=== PATIENT | male | born 1965 | race Caucasian/White ===

== ENCOUNTER 2018-07-05 06:50 | Inpatient (IN) | payer MEDICAID, OTHER ==
[~2018-07-05] VITALS: Ht 170.2 cm; Wt 81.6 kg
[2018-07-05] VITALS (7 sets, daily range): BP systolic 106–148; BP diastolic 70–92
[2018-07-05] MEDS ORDERED: NS 1000ML 1,000 ML STA (07:04)
[2018-07-05] MEDS ORDERED: SOLU-MEDROL IV STA (07:06)
[2018-07-05] MEDS ORDERED: DECADRON IH STA (07:06)
[2018-07-05] MEDS ORDERED: DUONEB 0.5 MG-3 MG/3 ML SOLN IH STA (07:06)
[2018-07-05] MEDS ORDERED: HALDOL IM STA (07:12)
[2018-07-05] MEDS ORDERED: ATIVAN IV STA (07:12)
[2018-07-05] MEDS ORDERED: ATIVAN ONE (07:15)
[2018-07-05] MEDS ORDERED: BENADRYL IV STA (07:15)
[2018-07-05] MEDS ORDERED: NS 1000ML 1,000 ML ONE ×2 (07:21→21:29)
[2018-07-05] MEDS ORDERED: DECADRON ONE (07:22)
[2018-07-05] MEDS ORDERED: DUONEB 0.5 MG-3 MG/3 ML SOLN IH ONE (07:22)
[2018-07-05 07:25] LABS: BASOPHIL % 0.3 % (0.0-0.2); EOSINOPHIL # 0.4 10^3/uL (0.0-0.2); EOSINOPHIL % 3.2 % (0.0-5.0); LYMPHOCYTES # 2.2 10^3/uL (1.0-4.8); LYMPHOCYTES % 17.9 % (24.0-44.0); MEAN CELL HGB 23.5 pg (26-34); MEAN CELL HGB CONCENTRATION 29.8 g/dL (33-37); MEAN CORP VOLUME 79.1 fL (78-100); MEAN PLATELET VOLUME 11.6 fL (7.8-11.0); MONOCYTES % 8.6 % (5.0-12.0); NEUTROPHIL # 8.5 10^3/uL (1.8-7.7); NEUTROPHILS % 69.8 % (41.0-85.0); RED CELL DISTRIBUTION WIDTH 20.7 % (11.5-14.5); WHITE BLOOD CELL 12.2 10^3/uL (4.5-11.0)
[2018-07-05] MEDS ORDERED: SOLU-MEDROL ONE (07:26)
[2018-07-05] MEDS ORDERED: BENADRYL ONE (07:36)
--- NOTE | 2018-07-05 07:38 | ER.PDOC ---
General Chief Complaint: Nausea,Vomiting,Diarrhea Stated Complaint: COUGH, VOMIT BLOOD, SUBMASSIVE HEMOPTYSIS Time seen by MD: 07:33 Source: patient Exam Limitations: no limitations, other (PARANOID SCHIZOPHRENIA) History of Present Illness Timing/Duration: 1-3 hours Severity: mild Activities at Onset: none Prior Episodes/Possible Cause: no prior episodes Modifying Factors: improves with albuterol inhaler, improves with coughing, improves with oxygen, improves with rest Associated Symptoms: anxiety Prior symptoms/Treatment: Similar symptoms previous Past Medical History Medical History: COPD, thyroid disease, other Surgical History: no surgical history Social History Smoking: non-smoker Alcohol Use: none Drug Use: none Reviewed Nursing Reviewed: Vital Signs, Abn. Noted Review of Systems All Other Systems: Reviewed and Negative Physical Exam General Appearance: No Apparent Distress, WD/WN HEENT: PERRL/EOMI, Normal ENT Inspection, TMs Normal, Pharynx Normal Neck: Non-Tender, Full Range of Motion, Supple, Normal Inspection Respiratory: rhonchi Cardiovascular: Normal Peripheral Pulses, Regular Rate, Rhythm, No Edema, No Gallop, No JVD, No Murmur Gastrointestinal: Normal Bowel Sounds, No Organomegaly, No Pulsatile Mass, Non Tender, Soft Extremities: Pedal Edema Neurologic/Psychiatric: geophysical party chief II-XII NML as Tested, No Motor/Sensory Deficits, Alert, Normal Mood/Affect, Oriented x 3 Skin: Normal Color, Warm/Dry Lymphatic: No Adenopathy Results/Orders Results/Orders Orders - TOMMY VERGARA MD Ammonia (07/05/18 07:04) Valproate (07/05/18 07:04) Cbc With Auto Diff (07/05/18 07:04) Comprehensive Metabolic Panel (07/05/18 07:04) Amylase (07/05/18 07:04) Lipase (07/05/18 07:04) Helicobacter Pylori (07/05/18 07:04) PT (07/05/18 07:04) Partial Thromboplastin Time. (07/05/18 07:04) Urinalysis (07/05/18 07:04) Type And Screen (07/05/18 07:04) 0.9 % Sodium Chloride (Ns 1000ml) (07/05/18 07:04) Ipratropium/Albuterol Sulfate (Duoneb 0. (07/05/18 07:06) Dexamethasone Sod Phosphate (Decadron) (07/05/18 07:06) Methylprednisolone Sod Succ (Solu-Medrol (07/05/18 07:06) Lorazepam (Ativan) (07/05/18 07:12) Haloperidol Lactate (Haldol) (07/05/18 07:12) Troponin I (07/05/18 07:12) Creatine Kinase Mb (07/05/18 07:12) Creatine Kinase (07/05/18 07:12) Diphenhydramine Hcl (Benadryl) (07/05/18 07:15) Lorazepam (Ativan) (07/05/18 07:15) 0.9 % Sodium Chloride (Ns 1000ml) (07/05/18 07:21) Ipratropium/Albuterol Sulfate (Duoneb 0. (07/05/18 07:22) Dexamethasone Sod Phosphate (Decadron) (07/05/18 07:22) Methylprednisolone Sod Succ (Solu-Medrol (07/05/18 07:26) Ekg-Routine (07/05/18 07:33) Xr Chest 1v (07/05/18 07:10) Diphenhydramine Hcl (Benadryl) (07/05/18 07:36) Piperacillin Sodium/Tazobactam (Zosyn 3. (07/05/18 07:54) Vital Signs Date Time Temp Pulse Resp B/P (MAP) Pulse Ox O2 Delivery O2 Flow Rate FiO2 07/05/18 07:34 109 16 95 07/05/18 07:29 113 16 91 07/05/18 07:13 98.5 109 14 136/79 (98) 81 Room Air 98.5 07/05/18 07:03 98.5 109 14 81 Room Air 98.5 Administered Medications Medications (Trade) Dose Ordered Sig/Cedric Route PRN Reason Start Time Stop Time Status Last Admin Dose Admin Albuterol/ Ipratropium (Duoneb 0.5 Mg-3 Mg/3 ml Soln) 3 ml STAT STAT IH 07/05/18 07:06 07/05/18 07:08 DC 07/05/18 07:33 3 ML Dexamethasone Sodium Phosphate (Decadron) 4 mg STAT STAT IH 07/05/18 07:06 07/05/18 07:08 DC 07/05/18 07:33 4 MG Diphenhydramine HCl (Benadryl) 25 mg STAT STAT IV 07/05/18 07:15 07/05/18 07:16 DC 07/05/18 07:36 25 MG Haloperidol Lactate (Haldol) 5 mg STAT STAT IM 07/05/18 07:12 07/05/18 07:16 DC 07/05/18 08:58 5 MG Lorazepam (Ativan) 2 mg STAT STAT IV 07/05/18 07:12 07/05/18 07:16 DC 07/05/18 07:21 2 MG Methylprednisolone Sodium Succinate (Solu-Medrol) 125 mg STAT STAT IV 07/05/18 07:06 07/05/18 07:08 DC 07/05/18 07:31 125 MG Piperacillin Sod/ Tazobactam Sod 3.375 gm/Sodium Chloride 100 ml @ 100 mls/hr STAT STAT IV 07/05/18 07:54 07/05/18 08:53 DC 07/05/18 08:12 100 MLS/HR Sodium Chloride 1,000 ml @ 0 mls/hr Q0M STAT IV 07/05/18 07:04 07/05/18 07:07 DC 07/05/18 07:30 999 MLS/HR Laboratory Tests Test 07/05/18 07:17 07/05/18 07:33 White Blood Count 12.2 10^3/uL (4.5-11.0) H Red Blood Count 4.25 10^6/uL (4.50-5.90) L Hemoglobin 10.0 g/dL (13.9-16.3) L Hematocrit 33.6 % (37.0-53.0) L Mean Corpuscular Volume 79.1 fL (78-100) Mean Corpuscular Hemoglobin 23.5 pg (26-34) L Mean Corpuscular Hemoglobin Concent 29.8 g/dL (33-37) L Red Cell Distribution Width 20.7 % (11.5-14.5) H Platelet Count 313 10^3/uL (150-400) Mean Platelet Volume 11.6 fL (7.8-11.0) H Neutrophils (%) (Auto) 69.8 % (41.0-85.0) Lymphocytes (%) (Auto) 17.9 % (24.0-44.0) L Monocytes (%) (Auto) 8.6 % (5.0-12.0) Neutrophils # (Auto) 8.5 10^3/uL (1.8-7.7) H Lymphocytes # (Auto) 2.2 10^3/uL (1.0-4.8) Monocytes # (Auto) 1.0 10^3/uL (0.3-0.8) H Absolute Immature Granulocyte (auto 0.03 10^3 u/L (0-2) Eosinophils % 3.2 % (0.0-5.0) Basophils % 0.3 % (0.0-0.2) H Basophils # 0.0 10^3/uL (0.0-0.1) Eosinophil Count 0.4 10^3/uL (0.0-0.2) H Prothrombin Time 11.2 SEC (9.8-11.9) Prothrombin Time INR (Non-Therap) 1.1 PTT 23.3 SEC (24.67-30.72) Sodium Level 139 mmol/L (132-145) Potassium Level 4.1 mmol/L (3.6-5.2) Chloride Level 101.0 mmol/L (96-109) Carbon Dioxide Level 28.1 mmol/L (20.0-32) Anion Gap 14.0 Blood Urea Nitrogen 14 mg/dL (7-18) Creatinine 1.52 mg/dL (0.59-1.40) H Estimated GFR () 58.1 (>/=60) BUN/Creatinine Ratio 9.0 Glucose Level 101 mg/dL (70-110) Calcium Level 9.0 mg/dL (8.4-10.5) Total Bilirubin 0.2 mg/dL (0.2-1.0) Aspartate Amino Transferase (AST) 11 U/L (0-35) Alanine Aminotransferase (ALT) 11 U/L (12-78) L Alkaline Phosphatase 67 U/L (50-136) Ammonia 17 umol/L (11-35) Total Creatine Kinase 230 U/L (39-308) Creatine Kinase MB 1.1 ng/mL (0.5-3.6) Troponin I < 0.02 ng/mL (0.00-0.05) Total Protein 8.6 g/dL (6.4-8.2) H Albumin 3.0 g/dL (3.4-5.0) L Globulin 5.6 Amylase Level 95 U/L (25-115) Lipase 138 U/L (114-286) Valproic Acid Level 25 ug/mL (50-100) L Percent Immature Gran (Cell Imm) 0.20 % (0.00-0.50) Helicobacter pylori Screen NEGATIVE (NEGATIVE) Differential Total Cells Counted 100 #CELLS Segmented Neutrophils 75 % (31-76) Lymphocytes 15 % (25-36) L Monocytes 8 % (3-9) Absolute Eosinophils (Manual) 1 % (1-4) Basophils 1 % (0-2) Platelet Estimate ADEQUATE Platelet Morphology NORMAL Poikilocytosis 1+ (NEGATIVE) Anisocytosis 2+ (NEGATIVE) Blood Bank Test 07/05/18 07:17 Antibody Screen NEGATIVE BBK History Checked NO PREVIOUS RECORD Blood Type A POSITIVE EKG/XRAY/CT/US EKG: NSR, no ST T wave changes Consult/PCP Time Consult/PCP Called: 08:00 Consult/PCP: DR BROWN Course Vitals & review Data Vital Sign - Last 24 Hours 07/05/18 07/05/18 07/05/18 07/05/18 07:03 07:13 07:29 07:34 Temp 98.5 98.5 98.5 98.5 Pulse 109 109 113 109 Resp 14 14 16 16 B/P (MAP) 136/79 (98) Pulse Ox 81 81 91 95 O2 Delivery Room Air Room Air Laboratory Tests Test 07/05/18 07:17 07/05/18 07:33 White Blood Count 12.2 10^3/uL Red Blood Count 4.25 10^6/uL Hemoglobin 10.0 g/dL Hematocrit 33.6 % Mean Corpuscular Volume 79.1 fL Mean Corpuscular Hemoglobin 23.5 pg Mean Corpuscular Hemoglobin Concent 29.8 g/dL Red Cell Distribution Width 20.7 % Platelet Count 313 10^3/uL Mean Platelet Volume 11.6 fL Neutrophils (%) (Auto) 69.8 % Lymphocytes (%) (Auto) 17.9 % Monocytes (%) (Auto) 8.6 % Neutrophils # (Auto) 8.5 10^3/uL Lymphocytes # (Auto) 2.2 10^3/uL Monocytes # (Auto) 1.0 10^3/uL Absolute Immature Granulocyte (auto 0.03 10^3 u/L Eosinophils % 3.2 % Basophils % 0.3 % Basophils # 0.0 10^3/uL Eosinophil Count 0.4 10^3/uL Prothrombin Time 11.2 SEC Prothrombin Time INR (Non-Therap) 1.1 Activated Partial Thromboplast Time 23.3 SEC Sodium Level 139 mmol/L Potassium Level 4.1 mmol/L Chloride Level 101.0 mmol/L Carbon Dioxide Level 28.1 mmol/L Anion Gap 14.0 Blood Urea Nitrogen 14 mg/dL Creatinine 1.52 mg/dL Estimated GFR () 58.1 BUN/Creatinine Ratio 9.0 Glucose Level 101 mg/dL Calcium Level 9.0 mg/dL Total Bilirubin 0.2 mg/dL Aspartate Amino Transf (AST/SGOT) 11 U/L Alanine Aminotransferase (ALT/SGPT) 11 U/L Alkaline Phosphatase 67 U/L Ammonia 17 umol/L Total Creatine Kinase 230 U/L Creatine Kinase MB 1.1 ng/mL Troponin I < 0.02 ng/mL Total Protein 8.6 g/dL Albumin 3.0 g/dL Globulin 5.6 Amylase Level 95 U/L Lipase 138 U/L Valproic Acid (Depakene) Level 25 ug/mL Percent Immature Gran (Cell Imm) 0.20 % Helicobacter pylori Screen NEGATIVE Differential Total Cells Counted 100 #CELLS Segmented Neutrophils 75 % Lymphocytes 15 % Monocytes 8 % Absolute Eosinophils (Manual) 1 % Basophils 1 % Platelet Estimate ADEQUATE Platelet Morphology NORMAL Poikilocytosis 1+ Anisocytosis 2+ Sepsis Infection Criteria Pres: None O2 Sat by Pulse Oximetry: 91 Departure Time of Disposition: 10:00 Disposition: 09 ADMITTED INPATIENT Impression: Primary Impression: COPD (chronic obstructive pulmonary disease) with acute bronchitis Additional Impression: Acute (undifferentiated) schizophrenia Condition: Improved Duration or Time Spent with Pa: 2 HRS Problem Qualifiers TOMMY VERGARA MD Jul 05, 2018 07:38
--- NOTE | 2018-07-05 07:39 | DIREP ---
PROCEDURE:CHEST 1 VIEW COMPARISON:None. INDICATIONS:hemoptysis FINDINGS: LUNGS/PLEURA:No significant pulmonary parenchymal abnormalities. No effusions. VASCULATURE:Normal. Unremarkable pulmonary vasculature. CARDIAC:The heart size is mildly enlarged. MEDIASTINUM:Normal. No visible mass or adenopathy. BONES:Normal. No fracture or visible bony lesion. OTHER:Negative. CONCLUSION:Mild cardiomegaly without acute cardiopulmonary disease. Dictated by: Brian Sidhu M.D. on 07/05/2018 at 07:38 AM
--- NOTE | 2018-07-05 07:41 | PCM.EKG ---
[facility] Test Date: 2018-07-05 Test Time: 07:40:03 Pat Name: ESTHER ZULETA Department: Patient ID: [id number] Room: 303 Gender: M [employer] Outreach Specialist: KATHERINE : 1965 Requested By: TOMMY VERGARA Order Number: [id number] Reading MD: Tommy Vergara Measurements Intervals [place] Rate: 105 P: 67 AK: 142 QRS: -57 QRSD: 92 T: 63 QT: 362 QTc: 478 Interpretive Statements Sinus tachycardia Left axis deviation Abnormal ECG No previous ECG available for comparison Electronically Signed On 07-09-2018 7:29:34 CDT by Tommy Vergara Please click the below link to view image of tracing.
[2018-07-05 07:42] LABS: CARBON DIOXIDE 28.1 mmol/L (20.0-32)
[2018-07-05] MEDS ORDERED: ZOSYN 3.375 GRAM VIAL 3.375 GM in NS 100ML 100 ML IV STA (07:54)
[2018-07-05] MEDS ORDERED: NS 100ML 100 ML IV ONE ×2 (08:05→19:09)
[2018-07-05] MEDS ORDERED: ZOSYN 3.375 GRAM VIAL IV ONE (08:05)
[2018-07-05 08:22] LABS: ANISOCYTOSIS 2+ (NEGATIVE); BASOPHIL 1 % (0-2); EOSINOPHIL 1 % (1-4); LYMPHOCYTE 15 % (25-36); MONOCYTE 8 % (3-9); SEGMENTED NEUTROPHILS 75 % (31-76)
[2018-07-05 08:41] LABS: BILIRUBIN,URINE NEGATIVE (NEGATIVE); UROBILINOGEN,URINE NORMAL (NEGATIVE)
[2018-07-05 08:43] LABS: APPEARANCE,URINE CLEAR (CLEAR); UA COLOR YELLOW (YELLOW)
[2018-07-05] MEDS ORDERED: HALDOL ONE (08:48)
--- NOTE | 2018-07-05 09:00 | NUR ---
TRANSFER PT TRANSFER TO [facility] 303, REPORT GIVEN TO RHETT. HENRRY.
--- NOTE | 2018-07-05 09:00 | NUR ---
[email or web address] PT TO [facility] VIA STRETCHER BY Denny URENA RN. BELONGINGS SENT WITH PT.
--- NOTE | 2018-07-05 09:48 | NUR ---
STATUS SINCE PT HAS ARRIVED PT HAS BEEN ATTEMPTING TO LEAVE THE ROOM. PT HAS BECOME SOME WHAT AGGRESSIVE AT TIMES. Denny MARCOS MEASURER MONITORING PT AT THIS TIME. I AM IN ROOM BECAUSE OF THE PT GRABBING Denny MARCOS ARM TRYING TO HEAD FOR THE DOOR. DR. BROWN AT BEDSIDE
[2018-07-05] MEDS: ATIVAN IV PRN ×3 (09:56→20:35)
[2018-07-05] MEDS ORDERED: WATER 20 ML ONE ×2 (10:31→17:51)
--- NOTE | 2018-07-05 10:35 | PCM.HP ---
HISTORY & PHYSICAL HISTORY & PHYSICAL DATE OF ADMISSION: CHIEF COMPLAINT: 53 yo male with paranoid schizophrenia comes in with 2 days of hemoptysis and possible hematemesis. Wheezing on exam. Admit for possible URI and Hematemesis with RAFAEL. H&P # [id number] HISTORY OF PRESENT ILLNESS: ALLERGIES: CURRENT MEDICATIONS: PAST MEDICAL HISTORY: SOCIAL HISTORY: FAMILY HISTORY: REVIEW OF SYSTEMS: PHYSICAL EXAMINATION: GENERAL: VITAL SIGNS: HEENT: NECK: LUNGS: HEART: ABDOMEN: EXTREMITIES: NEUROLOGIC: LABORATORY DATA: IMPRESSION: CARE PLAN: JENNIFER BROWN MD Jul 05, 2018 10:35
[2018-07-05] MEDS: ZYPREXA IM PRN ×2 (10:37→17:57)
[2018-07-05] MEDS ORDERED: LOVENOX SQ SCH (11:00)
--- NOTE | 2018-07-05 11:00 | NUR ---
RESTRAINTS ORDERS RECEIVED BY DR. BROWN FOR THE USE OF RESTRAINTS AT THIS TIME PER PROTOCOL
[2018-07-05] MEDS ORDERED: HALO5TAB PO (11:11)
[2018-07-05] MEDS ORDERED: DIVA500T17 PO (11:11)
[2018-07-05] MEDS ORDERED: OLAN10TA9 PO (11:11)
[2018-07-05] MEDS ORDERED: QUET300T6 PO (11:11)
[2018-07-05] MEDS ORDERED: QUET150T PO (11:11)
[2018-07-05] MEDS ORDERED: FOLI1TAB21 PO (11:11)
[2018-07-05] MEDS ORDERED: LEVE500T8 PO (11:11)
[2018-07-05] MEDS ORDERED: IPRA3AMP25 IH (11:11)
[2018-07-05] MEDS ORDERED: LEVE10007 PO (11:11)
[2018-07-05] MEDS ORDERED: THEO400C PO (11:11)
[2018-07-05] MEDS ORDERED: MONT10TA6 PO (11:11)
[2018-07-05] MEDS ORDERED: ESCI20TA PO (11:11)
[2018-07-05] MEDS ORDERED: LORA-448 PO (11:11)
[2018-07-05] MEDS ORDERED: LISI-410 PO (11:11)
[2018-07-05] MEDS ORDERED: LEVO100T PO (11:11)
[2018-07-05] MEDS ORDERED: ZOSYN 3.375 GM/50 ML IV SCH (12:00)
[2018-07-05] MEDS ORDERED: DUONEB 0.5 MG-3 MG/3 ML SOLN IH SCH (12:00)
--- NOTE | 2018-07-05 12:06 | HPH ---
ADMIT DATE: 07/05/2018 CHIEF COMPLAINT: Altered mental status, cough, nausea, and vomiting. HISTORY OF PRESENT ILLNESS: This is a 53-year-old male, residential patient with schizophrenia who comes in with several hours of coughing up blood. This has happened approximately 2-3 times, although it has not happened in the Emergency Department. It sounds more like blood-tinged sputum versus actual massive hemoptysis or gross hemoptysis. He also had some emesis which appeared to be coffee ground emesis. There was one episode of diarrhea, which did not show blood. His mental status has been somewhat altered as well with increasing confusion and agitation. This has been going on for the last 24 hours. During my interview and examination of the patient, he is wanting to leave his hospital room and becomes violent when the nursing staff tries to redirect him into his room. PAST MEDICAL HISTORY: 1. COPD. 2. Hypothyroidism. 3. Schizophrenia. MEDICATIONS: See admit medication reconciliation form. ALLERGIES: Unknown. PAST SURGICAL HISTORY: Unknown. SOCIAL HISTORY: Alcohol, tobacco: None. The patient currently lives in a nursing home facility. FAMILY HISTORY: Noncontributory. REVIEW OF SYSTEMS: Other than the above-mentioned symptoms and complaints review of systems is negative. OBJECTIVE: PHYSICAL EXAMINATION: VITAL SIGNS: Heart rate is 109, respirations 16, pulse oximeter 95% on room air, and blood pressure 117/70. GENERAL: This is a well-appearing male in no acute distress. HEENT: Atraumatic, normocephalic. Sclerae clear and anicteric. LUNGS: Clear to auscultation bilaterally. HEART: Regular rate and rhythm without murmurs, S3, S4. ABDOMEN: Soft, nontender, nondistended. EXTREMITIES: No new changes or edema. NEUROLOGIC: Cranial nerves 2 through 12 are grossly intact and symmetric. SKIN: Intact. LABORATORY DATA: WBC 12.2, hemoglobin 10, hematocrit 33.6, and platelets 313. Sodium 139, potassium 4.1, chloride 101, CO2 of 28, BUN 14, creatinine 1.52. Urinalysis negative. Chest x-ray: "No acute cardiopulmonary disease." IMPRESSION: 1. Hemoptysis. 2. Nausea, vomiting. 3. Leukocytosis. 4. Anemia of chronic disease. 5. Paranoid schizophrenia. 6. Hypertension. 7. Tachycardia. PLAN: 1. The patient is admitted to [facility] for further evaluation and management. 2. We will follow his symptoms closely and try to discern whether or not this is hemoptysis versus hematemesis. 3. May need surgery consult. 4. Follow H and H closely as it may need transfusion. 5. We will try to get home medication list and ascertain if he is on blood thinners. 6. Start empiric antibiotics. Consider CT of the chest. Kieran Pedro MD DR: KRISTIN/jimenez JOB# [id number]
[2018-07-05] MEDS: DUONEB 0.5 MG-3 MG/3 ML SOLN IH SCH ×3 (13:00→20:38)
[2018-07-05] MEDS: SOLU-MEDROL IV SCH ×2 (14:21→21:27)
[2018-07-05] MEDS: ZOSYN 3.375 GRAM VIAL 3.375 GM in NS 100ML 100 ML IV SCH ×2 (14:21→18:00)
--- NOTE | 2018-07-05 14:30 | NUR ---
RESTRAINTS RESTRAINTS WERE REMOVED. PT IS UP IN THE A CHAIR SITTING AT THIS TIME. STAFF IS CONTINUING 1:1 WITH PT. PT ALSO TAKEN FOR A WALK IN THE HALLWAY BY STAFF. GAVE PT A WALKER TO STEADY HIM. WHEN BACK IN ROOM PT UP IN A RECLINER FOR MORE COMFORT. STAFF CONT 1:1
--- NOTE | 2018-07-05 16:07 | NUR ---
EMESIS PT HAS HAD TIMES TWO PROJECTILE VOMITING. ONE WAS AFTER LUNCH AND WAS NOW. PT WAS CLEANED AFTER EACH. REPORTED TO RN EACH TIME
[2018-07-05] MEDS ORDERED: PROTONIX PO ONE (16:17)
[2018-07-05] MEDS: PROTONIX PO SCH (16:20)
--- NOTE | 2018-07-05 17:57 | NUR ---
INCIDENT ANNEMARIE EATON WAS AMBULATING PT DOWN THE WALKER. PT BEGAN TO GET VIOLENT AND PUSHED HE AGAINST THE WALL. PT WAS ABLE TO BE BROUGHT BACK TO ROOM X3 PERSONS. PT WAS STILL COMBATIVE AND NEEDED 4 NURSES TO CONTROL PT TO PUT RESTRAINTS BACK ONTO PT. 7.5 MG OF IM ZYPREXA GIVEN AT THIS TIME.
--- NOTE | 2018-07-05 18:11 | NUR ---
STATUS PT HAD 500ML OF STOOL LIKE EMESIS AT THIS TIME. DR. BROWN INFORMED. NEW ORDER FOR NG TUBE TO LIS AND TO BE NPO
--- NOTE | 2018-07-05 19:03 | DIREP ---
PROCEDURE:CHEST 1 VIEW COMPARISON:[facility], CR, XRAY CHEST SINGLE VW, 07/05/2018, 07:23 AM. INDICATIONS:NGT PLACEMENT FINDINGS: LUNGS/PLEURA:The lung apices are cut from the film. There is overlapping mandibular shadow identified. NG tube projects over the esophagus, the tip below the left diaphragm in the body of the stomach. The lungs as visualized show no infiltrates, heart failure or effusions. VASCULATURE:Normal. Unremarkable pulmonary vasculature. CARDIAC:Normal. No cardiac silhouette abnormality or cardiomegaly. MEDIASTINUM:Normal. No visible mass or adenopathy. BONES:Normal. No fracture or visible bony lesion. OTHER:Negative. CONCLUSION:NG tube in the stomach. Dictated by: Aron Major MD on 07/05/2018 at 07:01 PM
[2018-07-05] MEDS ORDERED: PROTONIX IV IV ONE (19:09)
[2018-07-05 19:11] LABS: HEMOGLOBIN 9.6 g/dL (13.9-16.3); MEAN CELL HGB 22.9 pg (26-34); MEAN CELL HGB CONCENTRATION 28.9 g/dL (33-37); MEAN PLATELET VOLUME 11.3 fL (7.8-11.0); RED CELL DISTRIBUTION WIDTH 20.6 % (11.5-14.5); WHITE BLOOD CELL 13.5 10^3/uL (4.5-11.0)
[2018-07-05] MEDS ORDERED: REGLAN IV SCH (20:00)
[2018-07-05] MEDS: PROTONIX IV 80 MG in NS 100ML 100 ML IV SCH (20:00)
--- NOTE | 2018-07-05 20:01 | NUR ---
CAME IN ROOM ELEAZAR HAD JUST FINISHED INSERTING NGT TO Derek POSADAS, X-RAY IN ROOM TO CHECK FOR PLACEMENT, PT WAS RESTRAINED WITH SOFT RESTRAINTS, BLE AND BUE. Addendum: 07/05/18 at 2137 by Chirsty Rivas, [facility] - Med Surg LEAK OPERATOR [employer] pt was vomiting large amount of of dark green emisis with chunks of food,soon after pulling ngt out. nurses Eleazar, Dana and Ofelia stated to me that had vomited niumeral times before ngt was placed during the end of .
[2018-07-05 20:19] LABS: ABG PCO2 44.8 mmHg (35.0-45.0); ABG PH 7.402 (7.350-7.450); BE(B) 2.1 mmol/L (-2.0-2.0); HCO3act 27.3 mmol/L (22.0-26.0); pO2 53.5 mmHg (75.0-100.0)
--- NOTE | 2018-07-05 20:28 | NUR ---
PT PULLED NGT TUBE OUT. HE WAS ABLETO HOOK TUBING WITH PINKY FINGER. ELEAZAR TRIED TO INSERT NEW NGT YUBE X 2 WAS UNSUCCESSFUL. PROTONIX IS GOING VIA IV DRIP ORDERED. RESTRAINTS CHECKED, PT ABLE TO MOVE AROUND IN THEM. ABLE TO FIT FINGERS UNDER RESTRAINTS TO CHECK FOR TIGHTNESS.
--- NOTE | 2018-07-05 20:59 | NUR ---
PROTONIX WAS SCANED SENTHIL BUSH BUT WAS NOT ABLE TO BE HUNG UNTIL 2028, PT WAS COUGHING, AGITATED AND COMBATIVE. AT THAT TIME, WAS ABLE TO CALM PT, BY TURNING DOWN LIGHTS AND HOLDING HIS HAND, THEN WAS ABLE TO START THE PROTONIX DRIP.
--- NOTE | 2018-07-05 21:01 | NUR ---
PT HAVING SHORT RESTING PERIODS THE SITS UP IN BED AND STARTS LOUDLY SAYING LET ME OUT OF HERE, ONCE HAND HELD AGAIN HE DOSES BACK OFF. ALL RESTRAINTS INTACT AND CHECKED.
--- NOTE | 2018-07-05 22:20 | NUR ---
Dr. Solorio in room. Assessing pt.
--- NOTE | 2018-07-05 23:10 | NUR ---
RT IN ROOM DRAWING ABG
[2018-07-06] MEDS ORDERED: HNS 1000ML/KCL 20MEQ 1,000 ML ONE (00:03)
[2018-07-06 00:12] VITALS: BP 129/86
[2018-07-06] MEDS: ZOSYN 3.375 GRAM VIAL 3.375 GM in NS 100ML 100 ML IV SCH ×4 (00:12→21:24)
[2018-07-06] MEDS: DUONEB 0.5 MG-3 MG/3 ML SOLN IH SCH ×3 (02:08→08:37)
[2018-07-06] MEDS: D5W-1/2 NS/KCL 20MEQ 1,000 ML IV SCH ×2 (02:55→05:10)
--- NOTE | 2018-07-06 02:58 | NUR ---
started d5w 1/2 ns @ 20kcl, after pt recieved bag of ns that was running when Dr. Solorio came to room earlier, Osmin stated to run bag of ns in at 250cc/hr, then change fluid.
[2018-07-06 03:26] VITALS: BP 142/92
--- NOTE | 2018-07-06 03:49 | DIREP ---
PROCEDURE:XR ABDOMEN 2 VIEWS COMPARISON:None. INDICATIONS:N/V TECHNIQUE:Flat and upright views of the abdomen are provided. FINDINGS: BOWEL GAS PATTERN:[id number] fecal burden within the proximal colon. The more distal colon appears relatively decompressed. No dilated loops of small bowel are identified. CALCIFICATIONS:No suspicious calcifications are appreciated. LUNG BASES:Grossly clear. BONES:Degenerative changes of the spine. CONCLUSION: 1. Nonspecific nonobstructive bowel gas pattern. 2. No suspicious calcifications identified. Dictated by: Erik Leiva M.D. On 07/06/2018 at 03:47 AM
[2018-07-06] MEDS ORDERED: NS 100ML 100 ML IV ONE (04:45)
[2018-07-06] MEDS ORDERED: PROTONIX IV IV ONE (04:45)
[2018-07-06] MEDS: PROTONIX IV 80 MG in NS 100ML 100 ML IV SCH (05:08)
[2018-07-06] MEDS: SOLU-MEDROL IV SCH ×3 (05:10→22:10)
[2018-07-06 05:12] LABS: HEMOGLOBIN 9.1 g/dL (13.9-16.3); MEAN CELL HGB CONCENTRATION 29.1 g/dL (33-37); MEAN CORP VOLUME 79.2 fL (78-100); MEAN PLATELET VOLUME 11.4 fL (7.8-11.0); RED CELL DISTRIBUTION WIDTH 20.2 % (11.5-14.5); WHITE BLOOD CELL 16.2 10^3/uL (4.5-11.0)
[2018-07-06 05:35] LABS: CALCIUM 8.7 mg/dL (8.4-10.5); CARBON DIOXIDE 29.4 mmol/L (20.0-32)
--- NOTE | 2018-07-06 05:43 | NUR ---
pt is drowsy and starting to nap longer intervals, tried to remove restraints, unable to leave monica upper off, because pt keeps trying to pull out iv,and take O2. but i am at this time able to leave monica ankle off. will continue to monitor pt at bedside.
[2018-07-06] MEDS ORDERED: D5W-1/2NS 1000ML 1,000 ML IV ONE (08:30)
[2018-07-06 08:34] VITALS: BP 128/83
--- NOTE | 2018-07-06 10:47 | DIREP ---
PROCEDURE:CT ABD/PELVIS WITHOUT CONTRAST TECHNIQUE:No oral contrast was given. Axial cuts were obtained from the dome of the diaphragm to the ischial tuberosities. No intravenous contrast was given. The images were viewed at lung and soft tissue settings. Sagittal and coronal reconstructions are provided. COMPARISON:None. INDICATIONS:DISTENED ABDOMEN FINDINGS: LOWER CHEST:Bibasilar atelectasis. There is small infiltrate in the right dependent lung base. LIVER:Normal. BILIARY:Normal. PANCREAS:Normal. SPLEEN:Normal. URINARY TRACT:Normal. ADRENALS:Normal. AORTA/VASCULAR:Normal. RETROPERITONEUM:Small lymph nodes. BOWEL/MESENTERY:Small hiatal hernia. A few lymph nodes are seen in the mediastinal fat adjacent to the hiatal hernia. Diverticulosis. No CT evidence of diverticulitis. The appendix is not seen. ABDOMINAL WALL:Midline fat containing hernia. PELVIS:Calcifications peripherally with the prostate. Prostate is not enlarged. There is mild bladder wall thickening. BONES:Extensive subchondral lucencies and other areas of sclerosis are seen in both femoral heads probably related to degenerative change. OTHER:Normal. CONCLUSION: 1. Significantly limited study due to motion and lack of IV or oral contrast. 2. Small infiltrate versus prominent atelectasis in the right dependent lung base. 3. Diverticulosis without CT evidence of diverticulitis. 4. Mild bladder wall thickening. 5. Extensive subchondral lucencies and other areas of sclerosis in the femoral heads probably related to severe degenerative changes. 6. Borderline prominent lymph nodes in the retroperitoneum and along a hiatal hernia in the lower mediastinum. Other findings as above. Dictated by: Jordan Kyle MD on 07/06/2018 at 10:37 AM
[2018-07-06] MEDS: PROTONIX PO SCH (10:53)
--- NOTE | 2018-07-06 11:05 | NUR ---
DISCHARGE PLAN PATIENT IS DISORIENTED X3. CM PHONED [facility] TO FIND OUT STATUS OF PATIENT RETURNING TO THEIR FACILITY. PATIENT WAS ADMITTED TO THEIR FACILITY FROM A [facility] ON WEDNESDAY EVENING AND WAS ADMITTED TO OUR FACILITY THE NEXT DAY. THE DISCHARGE PLAN IS FOR THE PATIENT TO RETURN BACK TO [facility] FOR SKILLED THERAPY WAAS PREVIOUSLY INTENDED FOR PATIENT PRIOR TO THIS HOSPITAL ADMISSION. CM WILL CONTINUE TO FOLLOW FOR DISCHARGE NEEDS.
--- NOTE | 2018-07-06 11:05 | PRM.PN ---
Subjective Subjective Date: Jul 06, 2018 Time: 11:00 Subjective A little somnolent this AM. No specific complaints. Still getting intermittently agitated. No further episodes of vomiting today. VTE VTE Risk Total Score: 1 VTE Risk Score VTE Risk: Score 0-1 = Low Risk (Aggressive mobilization; early ambulation; no VTE prophylaxis required) Score 2: Moderate Risk (Intermittent/Pneumatic Compression Device OR Lovenox/Heparin/Coumadin) Score 3-4: High Risk (Intermittent/Pneumatic Compression Device AND Lovenox/Heparin/Coumadin) Score > or =5: Highest Risk (Intermittent/Pneumatic Compression Device AND Lovenox/Heparin/Coumadin) Review of Systems Constitutional: Weakness; No: Fever, Chills, Sweats, Malaise, Other Respiratory: No: Cough, Dry, Shortness of breath, SOB with excertion, Wheezing , Hemoptysis, Pleuritic Pain, Sputum, Wheezing, Other Cardiovascular: No: Chest Pain, Palpitations, Orthopnea, Paroxysmal Noc. Dyspnea, Edema, Lt Headedness, Other Gastrointestinal: Nausea; No: Vomiting, Abdominal Pain, Diarrhea, Constipation , Melena, Hematochezia, Other Genitourinary: No Dysuria, No Frequency, No Incontinence, No Hematuria, No Retention, No Other Neurological: Weakness; No: Numbness, Incoordination, Change in speech, Confusion, Seizures, Other Allergies: Coded Allergies: No Known Drug Allergies (Verified Allergy, Unknown, 07/05/18) Scheduled Divalproex Sodium (Divalproex Sodium Er), 1 TAB PO HS, (Reported) Escitalopram Oxalate (Escitalopram Oxalate), 1 TAB PO DAILY, (Reported) Folic Acid (Folic Acid), 1 TAB PO DAILY, (Reported) Haloperidol (Haloperidol), 1 TAB PO BID, (Reported) Levetiracetam (Levetiracetam), 1,000 MG PO BID, (Reported) Levetiracetam (Levetiracetam), 1 TAB PO BID, (Reported) Levothyroxine Sodium (Synthroid), 1 TAB PO ACB, (Reported) Lisinopril (Lisinopril), 1 TAB PO DAILY, (Reported) Lorazepam (Ativan), 1 MG PO BID, (Reported) Montelukast Sodium (Singulair), 1 TAB PO HS, (Reported) Olanzapine (Olanzapine), 1 TAB PO HS, (Reported) Quetiapine Fumarate (Seroquel Xr), 1 TAB PO DAILY24, (Reported) Quetiapine Fumarate (Seroquel Xr), 1 TAB PO HS, (Reported) Theophylline Anhydrous (Rl-24), 400 MG PO DAILY24, (Reported) Scheduled PRN Ipratropium/Albuterol Sulfate (Iprat-Albut 0.5-3(2.5) Mg/3 Ml), 3 ML IH Q4 PRN for SHORTNESS OF BREATH, (Reported) Objective Vitals and I/O Vital Sign - Last 24 Hours 07/05/18 07/05/18 07/05/18 07/05/18 12:21 12:29 14:09 14:10 Temp 98.8 98.8 Pulse 105 107 110 Resp 21 28 14 B/P (MAP) 132/83 (99) Pulse Ox 95 97 98 O2 Delivery Nasal Canula Nasal Cannula O2 Flow Rate 2.00 07/05/18 07/05/18 07/05/18 07/05/18 14:10 16:52 16:53 16:54 Temp 97.9 97.9 Pulse 107 111 115 102 Resp 14 18 20 19 B/P (MAP) 135/92 (106) Pulse Ox 97 97 98 96 O2 Delivery Nasal Cannula Nasal Canula O2 Flow Rate 2.00 FiO2 28 07/05/18 07/05/18 07/05/18 07/05/18 20:31 20:37 20:37 20:39 Temp 98.0 98.0 Pulse 104 115 115 115 Resp 20 20 20 20 B/P (MAP) 148/89 (108) Pulse Ox 92 94 94 94 O2 Delivery Nasal Canula Nasal Cannula O2 Flow Rate 3.00 07/05/18 07/06/18 07/06/18 07/06/18 21:39 00:12 02:09 02:20 Temp 98.0 98.0 Pulse 103 105 105 Resp 18 20 20 B/P (MAP) 129/86 (100) Pulse Ox 98 93 93 O2 Delivery Nasal Cannula Nasal Canula O2 Flow Rate 3.00 07/06/18 07/06/18 07/06/18 07/06/18 03:26 05:21 05:28 08:34 Temp 97.6 98.3 97.6 98.3 Pulse 105 105 105 96 Resp 17 17 17 18 B/P (MAP) 142/92 (109) 128/83 (98) Pulse Ox 93 93 O2 Delivery Nasal Canula Nasal Canula O2 Flow Rate 2.00 2.00 07/06/18 07/06/18 07/06/18 07/06/18 08:39 08:39 08:44 10:41 Pulse 98 98 98 Resp 16 16 16 Pulse Ox 95 94 95 O2 Delivery Nasal Cannula Nasal Cannula O2 Flow Rate 2.00 FiO2 28 Intake and Output 07/05/18 07/05/18 07/06/18 14:59 22:59 06:59 Intake Total 1728 ml 462 ml Output Total 175 ml 1075 ml 1475 ml Balance 1553 ml -613 ml -1475 ml General: Alert, Cooperative, No acute distress Lungs: Other (Rhonchi right greater than left. ) Heart: Regular rate, Normal S1, Normal S2, No murmurs Abdomen: Normal bowel sounds, Soft, Other (Distended.) Neuro: Normal speech, Strength at 5/5 X4 ext All Results(Lab/Rad) Laboratory Tests Test 07/05/18 19:05 07/05/18 20:12 07/05/18 23:29 07/06/18 04:52 White Blood Count 13.5 10^3/uL 16.2 10^3/uL Red Blood Count 4.20 10^6/uL 3.95 10^6/uL Hemoglobin 9.6 g/dL 9.1 g/dL Hematocrit 33.2 % 31.3 % Mean Corpuscular Volume 79.0 fL 79.2 fL Mean Corpuscular Hemoglobin 22.9 pg 23.0 pg Mean Corpuscular Hemoglobin Concent 28.9 g/dL 29.1 g/dL Red Cell Distribution Width 20.6 % 20.2 % Platelet Count 316 10^3/uL 279 10^3/uL Mean Platelet Volume 11.3 fL 11.4 fL Blood Gas Sample Site RT BRACIAL ARTERY RT BRACIAL ARTERY Blood Gas pH 7.402 Blood Gas PCO2 44.8 mmHg Blood Gas PO2 53.5 mmHg Blood Gas HCO3 27.3 mmol/L Blood Gas Base Excess 2.1 mmol/L Jason Test N/A N/A Arterial Blood Oxygen Saturation 81.4 % Deoxyhemoglobin 18.5 % Carboxyhemoglobin 0.6 % Methemoglobin 0.1 % Total Hemoglobin 10.3 % Total Oxygen Concentration 11.7 % Lactic Acid (Blood Gas) 3.8 MMOL/L 1.5 MMOL/L Blood Gas Temperature 37 Oxygen Delivery Method (LAB) RA FiO2 21 % Bicarbonate 28.6 mmol/L Sodium Level 137 mmol/L Potassium Level 4.7 mmol/L Chloride Level 102.0 mmol/L Carbon Dioxide Level 29.4 mmol/L Anion Gap 10.3 Blood Urea Nitrogen 24 mg/dL Creatinine 1.44 mg/dL Estimated GFR () 61.9 BUN/Creatinine Ratio 16.0 Glucose Level 196 mg/dL Calcium Level 8.7 mg/dL Magnesium Level 2.2 mg/dL Total Bilirubin 0.2 mg/dL Aspartate Amino Transf (AST/SGOT) 18 U/L Alanine Aminotransferase (ALT/SGPT) 13 U/L Alkaline Phosphatase 62 U/L Total Protein 8.1 g/dL Albumin 2.8 g/dL Globulin 5.3 Current Medications Medications (Trade) Dose Ordered Sig/Cedric Route PRN Reason Start Time Stop Time Status Last Admin Dose Admin Sodium Chloride 1,000 ml @ 0 mls/hr Q0M STAT IV 07/05/18 07:04 07/05/18 07:07 DC 07/05/18 07:30 Albuterol/ Ipratropium (Duoneb 0.5 Mg-3 Mg/3 ml Soln) 3 ml STAT STAT IH 07/05/18 07:06 07/05/18 07:08 DC 07/05/18 07:33 Dexamethasone Sodium Phosphate (Decadron) 4 mg STAT STAT IH 07/05/18 07:06 07/05/18 07:08 DC 07/05/18 07:33 Methylprednisolone Sodium Succinate (Solu-Medrol) 125 mg STAT STAT IV 07/05/18 07:06 07/05/18 07:08 DC 07/05/18 07:31 Lorazepam (Ativan) 2 mg STAT STAT IV 07/05/18 07:12 07/05/18 07:16 DC 07/05/18 07:21 Haloperidol Lactate (Haldol) 5 mg STAT STAT IM 07/05/18 07:12 07/05/18 07:16 DC 07/05/18 08:58 Diphenhydramine HCl (Benadryl) 25 mg STAT STAT IV 07/05/18 07:15 07/05/18 07:16 DC 07/05/18 07:36 Lorazepam (Ativan) 2 mg STK-MED ONCE .ROUTE 07/05/18 07:15 07/05/18 07:17 DC Sodium Chloride 1,000 ml @ ud STK-MED ONCE .ROUTE 07/05/18 07:21 07/05/18 07:23 DC Albuterol/ Ipratropium (Duoneb 0.5 Mg-3 Mg/3 ml Soln) 3 ml STK-MED ONCE IH 07/05/18 07:22 07/05/18 07:23 DC Dexamethasone Sodium Phosphate (Decadron) 4 mg STK-MED ONCE .ROUTE 07/05/18 07:22 07/05/18 07:23 DC Methylprednisolone Sodium Succinate (Solu-Medrol) 125 mg STK-MED ONCE .ROUTE 07/05/18 07:26 07/05/18 07:27 DC Diphenhydramine HCl (Benadryl) 50 mg STK-MED ONCE .ROUTE 07/05/18 07:36 07/05/18 07:37 DC Piperacillin Sod/ Tazobactam Sod 3.375 gm/Sodium Chloride 100 ml @ 100 mls/hr STAT STAT IV 07/05/18 07:54 07/05/18 08:53 DC 07/05/18 08:12 Piperacillin/ Tazobactam/ Dextrose (Zosyn 3.375 Gm/ 50 ml) 3.375 gm Q6 IV 07/05/18 12:00 07/05/18 12:00 DC Methylprednisolone Sodium Succinate (Solu-Medrol) 60 mg Q8HR IV 07/05/18 14:00 08/04/18 13:59 07/06/18 05:10 Albuterol/ Ipratropium (Duoneb 0.5 Mg-3 Mg/3 ml Soln) 3 ml Q4HR IH 07/05/18 12:00 07/05/18 12:00 DC Sodium Chloride 100 ml @ ud STK-MED ONCE IV 07/05/18 08:05 07/05/18 08:06 DC Piperacillin Sod/ Tazobactam Sod (Zosyn 3.375 Gram Vial) 3.375 gm STK-MED ONCE IV 07/05/18 08:05 07/05/18 08:06 DC Albuterol/ Ipratropium (Duoneb 0.5 Mg-3 Mg/3 ml Soln) 3 ml RTQ4 IH 07/05/18 13:00 08/04/18 11:59 07/06/18 08:37 Piperacillin Sod/ Tazobactam Sod 3.375 gm/Sodium Chloride 100 ml @ 100 mls/hr Q6 IV 07/05/18 12:00 08/04/18 11:59 07/06/18 05:07 Haloperidol Lactate (Haldol) 5 mg STK-MED ONCE .ROUTE 07/05/18 08:48 07/05/18 08:50 DC Lorazepam (Ativan) 2 mg Q4 PRN IV AGITATION 07/05/18 10:00 08/04/18 09:59 07/05/18 20:35 Olanzapine (Zyprexa) 7.5 mg Q4 PRN IM AGITATION 07/05/18 10:00 08/04/18 09:59 07/05/18 17:57 Sterile Water 20 ml @ ud STK-MED ONCE .ROUTE 07/05/18 10:31 07/05/18 10:32 DC Pantoprazole Sodium (Protonix) 40 mg DAILY PO 07/06/18 09:00 08/05/18 08:59 07/05/18 16:20 Enoxaparin Sodium (Lovenox) 40 mg Q24HRS SQ 07/05/18 11:00 08/04/18 10:59 Future Hold 07/05/18 14:20 Pantoprazole Sodium (Protonix) 40 mg STK-MED ONCE PO 07/05/18 16:17 07/05/18 16:18 DC Sterile Water 20 ml @ ud STK-MED ONCE .ROUTE 07/05/18 17:51 07/05/18 17:52 DC Pantoprazole Sodium 80 mg/ Sodium Chloride 100 ml @ 10 mls/hr Q10H IV 07/05/18 19:30 08/04/18 19:29 07/06/18 05:08 Pantoprazole Sodium (Protonix Iv) 40 mg STK-MED ONCE IV 07/05/18 19:09 07/05/18 19:10 DC Sodium Chloride 100 ml @ ud STK-MED ONCE IV 07/05/18 19:09 07/05/18 19:10 DC Metoclopramide HCl (Reglan) 10 mg Q4 IV 07/05/18 20:00 07/05/18 21:51 DC 07/05/18 21:27 Sodium Chloride 1,000 ml @ ud STK-MED ONCE .ROUTE 07/05/18 21:29 07/05/18 21:31 DC Metoclopramide HCl (Reglan) 10 mg Q6HR PRN IV NAUSEA / VOMITING 07/06/18 03:00 08/04/18 19:59 Potassium Chloride/Dextrose/ Sod Cl 1,000 ml @ 150 mls/hr Q6H40M IV 07/05/18 22:30 07/06/18 08:16 DC 07/06/18 02:55 Potassium Chloride/Sodium Chloride 1,000 ml @ ud STK-MED ONCE .ROUTE 07/06/18 00:03 07/06/18 00:05 DC Pantoprazole Sodium (Protonix Iv) 40 mg STK-MED ONCE IV 07/06/18 04:45 07/06/18 04:47 DC Sodium Chloride 100 ml @ ud STK-MED ONCE IV 07/06/18 04:45 07/06/18 04:47 DC Course Sepsis Screening Results: Posi: POSITIVE++ Sepsis Qualifier/Stage: SEVERE SEPSIS RISK Duration or Total Time Spent w: 2 HRS Vitals & review Data Vital Sign - Last 24 Hours 07/05/18 07/05/18 07/05/18 07/05/18 07:03 07:13 07:29 07:34 Temp 98.5 98.5 98.5 98.5 Pulse 109 109 113 109 Resp 14 14 16 16 B/P (MAP) 136/79 (98) Pulse Ox 81 81 91 95 O2 Delivery Room Air Room Air Laboratory Tests Test 07/05/18 07:17 07/05/18 07:33 White Blood Count 12.2 10^3/uL Red Blood Count 4.25 10^6/uL Hemoglobin 10.0 g/dL Hematocrit 33.6 % Mean Corpuscular Volume 79.1 fL Mean Corpuscular Hemoglobin 23.5 pg Mean Corpuscular Hemoglobin Concent 29.8 g/dL Red Cell Distribution Width 20.7 % Platelet Count 313 10^3/uL Mean Platelet Volume 11.6 fL Neutrophils (%) (Auto) 69.8 % Lymphocytes (%) (Auto) 17.9 % Monocytes (%) (Auto) 8.6 % Neutrophils # (Auto) 8.5 10^3/uL Lymphocytes # (Auto) 2.2 10^3/uL Monocytes # (Auto) 1.0 10^3/uL Absolute Immature Granulocyte (auto 0.03 10^3 u/L Eosinophils % 3.2 % Basophils % 0.3 % Basophils # 0.0 10^3/uL Eosinophil Count 0.4 10^3/uL Prothrombin Time 11.2 SEC Prothrombin Time INR (Non-Therap) 1.1 Activated Partial Thromboplast Time 23.3 SEC Sodium Level 139 mmol/L Potassium Level 4.1 mmol/L Chloride Level 101.0 mmol/L Carbon Dioxide Level 28.1 mmol/L Anion Gap 14.0 Blood Urea Nitrogen 14 mg/dL Creatinine 1.52 mg/dL Estimated GFR () 58.1 BUN/Creatinine Ratio 9.0 Glucose Level 101 mg/dL Calcium Level 9.0 mg/dL Total Bilirubin 0.2 mg/dL Aspartate Amino Transf (AST/SGOT) 11 U/L Alanine Aminotransferase (ALT/SGPT) 11 U/L Alkaline Phosphatase 67 U/L Ammonia 17 umol/L Total Creatine Kinase 230 U/L Creatine Kinase MB 1.1 ng/mL Troponin I < 0.02 ng/mL Total Protein 8.6 g/dL Albumin 3.0 g/dL Globulin 5.6 Amylase Level 95 U/L Lipase 138 U/L Valproic Acid (Depakene) Level 25 ug/mL Percent Immature Gran (Cell Imm) 0.20 % Helicobacter pylori Screen NEGATIVE Differential Total Cells Counted 100 #CELLS Segmented Neutrophils 75 % Lymphocytes 15 % Monocytes 8 % Absolute Eosinophils (Manual) 1 % Basophils 1 % Platelet Estimate ADEQUATE Platelet Morphology NORMAL Poikilocytosis 1+ Anisocytosis 2+ Sepsis Infection Criteria Pres: Documented Infection LEVEL 1 SEPSIS INFECTION CRITE: ABX Therapy LEVEL 2-SIRS (LIST ALL THAT AP: HR>90/min, WBC>[id number] Cardiovascular Evidence: Not Assessed or None Hematologic Evidence: None/Not assessed Hepatic Evidence: None/Not assessed Metabolic Evidence: None/Not assessed Neurological Evidence: Altered Mental Status Respiratory Evidence: Need for O2 to keep>90%, O2 SAT<90room air Renal Evidence: None/Not assessed O2 Sat by Pulse Oximetry: 95 Oxygen Flow Rate: 2.00 Assessment/Plan Assessment/Plan Assessment/Plan 1. Hematemesis - Pt reportedly had bright red blood in emesis at SNF. Unfortunately won't keep NGT in. - Continue Protonix IV. - Follow H&H. - Consult Dr. Solorio for possible EGD. 2. N/V - Likely secondary to partial SBO vs ileus. Much less distended today. - Continue anti-emetics as needed. 3. Leukocytosis - On emperic abx. 4. Anemia of chronic disease - Stable. - Continue to follow closely. 5. Paranoid schizophrenia - Pt is very agitated. Making it difficult to manage his care. JENNIFER BROWN MD Jul 06, 2018 11:05
--- NOTE | 2018-07-06 11:10 | NUR ---
PT SLEEPING AT THIS TIME. RESTRAINTS HAVE NOT BEEN REPLACED AT THIS TIME DUE TO PT BEING RELAXED AND COMPLIANT. NO AGITATION, COMBATIVENESS PRESENTED IN PT BEHAVIOR. WILL CONTINUE TO MONITOR 1:1 AND REASSESS RESTRAINT USE IF NEEDED FOR AGGRESSION.
--- NOTE | 2018-07-06 11:17 | NUR ---
UPDATE RAD IN ROOM FOR CHEST XRAY.
[2018-07-06 12:30] VITALS: BP 124/75
[2018-07-06] MEDS: ZYPREXA IM PRN ×2 (12:45→17:46)
--- NOTE | 2018-07-06 13:26 | DIREP ---
PROCEDURE:CHEST 1 VIEW COMPARISON:[facility], CR, XRAY CHEST SINGLE VW, 07/05/2018, 06:33 PM. INDICATIONS:Eval for new pneumonia FINDINGS: LUNGS/PLEURA:Mildly coarsened lung markings. No definite consolidation. VASCULATURE:Normal. Unremarkable pulmonary vasculature. CARDIAC:Normal. No cardiac silhouette abnormality or cardiomegaly. MEDIASTINUM:Normal. No visible mass or adenopathy. BONES:Normal. No fracture or visible bony lesion. OTHER:Nasogastric tube has been removed CONCLUSION: 1. Mildly coarsened lung markings. No definite consolidation. Dictated by: Juvenal Zelaya MD on 07/06/2018 at 01:23 PM
[2018-07-06] MEDS: SEROQUEL PO SCH ×2 (15:45→19:41)
[2018-07-06] MEDS: DUONEB 0.5 MG-3 MG/3 ML SOLN IH PRN ×2 (15:55→22:17)
--- NOTE | 2018-07-06 17:53 | NUR ---
COMBATIVE PT COMBATIVE. HITTING AND KICKING STAFF. ZYPREXA IM ADMINISTERED PER PRN ORDERS. TOLERATED WELL. DR BROWN NOTIFIED OF CONTINUED OUTBURST BEHAVIOR. ORDERS RECEIVED TO REINSTATE RESTRAINTS AT THIS TIME.
[2018-07-06 18:49] VITALS: BP 140/97
[2018-07-06] MEDS ORDERED: DEPAKOTE ER PO ONE (19:37)
[2018-07-06] MEDS ORDERED: HALDOL ONE (19:37)
[2018-07-06] MEDS ORDERED: ZYPREXA ZYDIS ONE (19:37)
[2018-07-06] MEDS ORDERED: KEPPRA ONE (19:38)
[2018-07-06] MEDS ORDERED: ATIVAN ONE (19:38)
[2018-07-06] MEDS ORDERED: SINGULAIR ONE (19:38)
[2018-07-06] MEDS: ATIVAN PO SCH (19:40)
[2018-07-06] MEDS: DEPAKOTE ER PO SCH (19:40)
[2018-07-06] MEDS: SINGULAIR PO SCH (19:40)
[2018-07-06] MEDS: KEPPRA PO SCH ×2 (19:40→21:00)
[2018-07-06] MEDS: ZYPREXA ZYDIS PO SCH (19:41)
[2018-07-06] MEDS: HALDOL PO SCH (19:41)
--- NOTE | 2018-07-06 21:41 | CNH ---
DATE OF CONSULTATION: 07/05/2018 CHIEF COMPLAINT: Hematemesis. HISTORY OF PRESENT ILLNESS: This is a 53-year-old male who apparently came to [facility] ER from a prison in [place]. The chief complaint was hematemesis. He was evaluated by the Emergency Department and admitted to the service of the hospitalist for reports of hemoptysis and COPD exacerbation as well as acute bronchitis. The patient apparently has a significant psychiatric history based on evaluation of his prison chart. After reviewed with the prison records, it appears he came to the prison in [place] on 07/04/2018 prior to coming here on 07/05/2018. He was transferred there from assisted facility in [place], [place] and I was able to contact the facility and determined from there that he came there on 06/16/2018 from the [facility] in [place]. The patient had some history of violent behavior with residence at the facility he was at. After further discussion with the prison and the review of the paperwork in the chart, he has a court appointed guardian services name [facility]. I was able to contact dona Bauman, the number in the chart is confirmed, . She gave telephone consent for treatment. She states that her facility has difficulty with faxing for now and she is going email guardian papers to her nursing communications electrician supervisor. The patient was fairly sedated initially after receiving IV Ativan. He denies any abdominal pain at the time of my evaluation. Apparently, he has had multiple episodes of vomiting today per the nursing report. He is awake, but clearly not oriented, though pleasant and affable at the time of evaluation. PAST MEDICAL HISTORY: Per prison chart includes paranoid schizophrenia; iron-deficiency anemia, other specified; hypothyroidism; generalized anxiety disorder; conversion disorder with seizure convulsions; intermittent explosive disorder, unspecified; intellectual disabilities; essential hypertension; acute sinusitis, unspecified; chronic obstructive pulmonary disease with acute exacerbation; acute and chronic respiratory failure with hypercapnia; history of gastroesophageal reflux disease without esophagitis. MEDICATIONS: The patient has a list of medications in the electronic medical record for his reconciliation. ALLERGIES: Per chart no known drug allergies. PAST SURGICAL HISTORY: The patient has a scar in his neck since his previous trach and a scar in his abdomen consistent with previous PEG tube. He denies any other surgeries to me. SOCIAL HISTORY: Unable to be obtained at this time. FAMILY HISTORY: Unable to be obtained safely. REVIEW OF SYSTEMS: Unable to be obtained. PHYSICAL EXAMINATION: VITAL SIGNS: Last temperature is 97.9, pulse 115, respiratory rate 20, blood pressure 135/92. His O2 sat was 94 lasted per electronic medical record; however, it is reported to me by the nursing service that it was decreased when off his oxygen. Admission vital signs in the Emergency Department today show temperature 98.5 oral, pulse 104, respiratory rate 14, O2 sat was 81% at that time. HEENT: Normocephalic, atraumatic. He has pink mucous membranes. NECK: Supple and soft. Trachea is midline. He has no obvious JVD. He has no thyromegaly. LUNGS: Have raspy wheezes bilaterally, the left greater than the right. HEART: Has a regular rate and rhythm. ABDOMEN: The bowel sounds are positive and soft. He has no tenderness on exam. He has reducible umbilical hernia. EXTREMITIES: Show positive radial pulses bilaterally. Positive dorsal pedal pulses bilaterally. NEUROLOGIC: He has no acute lateralizing signs. SKIN AND INTEGUMENT: Warm and dry. LABORATORY STUDIES: On admission, WBC is 12.2, hemoglobin 10.0, platelet count 313; repeat showed WBC of 13.5, hemoglobin 9.6, and platelet count 316. Chemistry showed BUN of 14, creatinine 1.52. His CK is 230. His MB is 1.1. His troponin is less than 0.02. He has had a blood gas performed this evening, which shows pH of 7.402, pCO2 is 44.8, pO2 is 53.5, base excess is 2.1. He has lactic acid of 3.8, which was noted to be elevated. His serology shows H. pylori negative. Coagulation study shows PT 11.2, PTT is 23.3. Urine shows specific gravity 1.010. IMAGING: He had initial chest x-ray that showed no acute cardiomegaly. Repeat x-ray showed appropriate NG tube placement. Abdominal x-ray shows no air fluid levels. There is moderate quality film based on the patient's habitus. There are no signs of obstruction. ASSESSMENT: 1. History of hematemesis per report. 2. Acute renal injury versus chronic renal insufficiency. 3. History of hypertension. 4. History of schizophrenia. 5. History of unspecified intellectual disability. 6. History of intermittent explosive disorder. PLAN: 1. The patient is seen and examined. His available chart is reviewed. 2. I was able to contact Merna with the [facility] guardian service. She gave verbal consent to treat. She was able to provide significant collateral medical history aside from the fact the patient has known COPD and other psychiatric disorders. She reports she provide appropriate documentation. 3. With the patient's current status, it is reported by the nursing service will be difficult for him to have his CAT scan at this time and it is being delayed currently. 4. I agree with IV Protonix drip as ordered by the hospitalist, serial labs. I have ordered replacement IV fluids. SCDs for DVT prophylaxis because the potential for GI bleed, Lovenox will be held. I agree with empiric antibiotics ordered as this patient's complete diagnosis difficult to assess at this time. 5. Continue medical management per the primary service, Surgery will follow as needed as this patient proves to need an EGD or other surgical interventions. We will contact the guardian service for consent. Antonio Solorio DO DR: TRUE/jimenez JOB# [id number] CC: Kieran Pedro MD MTDD
[2018-07-06] MEDS: ATIVAN IV PRN (22:54)
[2018-07-07] VITALS (9 sets, daily range): BP systolic 116–157; BP diastolic 66–99
[2018-07-07] MEDS: ZOSYN 3.375 GRAM VIAL 3.375 GM in NS 100ML 100 ML IV SCH ×4 (00:26→22:11)
[2018-07-07] MEDS: REGLAN IV PRN ×2 (01:10→22:17)
[2018-07-07] MEDS ORDERED: NS 25ML 25 ML IV ONE (01:21)
[2018-07-07] MEDS ORDERED: PHENERGAN IV PRN (01:30)
[2018-07-07] MEDS ORDERED: PHENERGAN 25 MG in HNS 50ML 50 ML IV PRN (02:00)
--- NOTE | 2018-07-07 02:03 | PNH ---
DATE: BRIEF FOLLOWUP VISIT SUBJECTIVE: A 53-year-old male in no acute distress, sitting up in his chair in the room, tolerating clear liquid diet. Apparently, he has had further dark stools today per nursing report. OBJECTIVE: VITAL SIGNS: Last temperature is 98.3, pulse 98, respiratory rate 16, blood pressure 128/83. ABDOMEN: The bowel sounds are positive, soft, no significant tenderness on his exam today. LABORATORY DATA: Today show white count 16.2, hemoglobin 9.1, platelet count 279. Chemistry shows BUN of 24, creatinine 1.44. SURGICAL ASSESSMENT: 1. Acute upper gastrointestinal bleed. 2. Acute anemia secondary to acute losses. 3. History of schizophrenia. 4. History of previously diagnosed iron deficiency anemia. PLAN: 1. The patient is seen and examined briefly, the chart was reviewed. 2. Continue medical management per the primary service including optimizing PPI intervention. I have requested consent from the guardian service for EGD. We will make the patient n.p.o. after midnight for planned EGD tomorrow morning. Antonio Solorio DO DR: TRUE/jimenez JOB# [id number] CC: Kieran Pedro MD
[2018-07-07 05:38] LABS: ALANINE AMINOTRANSFERASE(ML) 12 U/L (12-78); ALKALINE PHOSPHATASE 55 U/L (50-136); ASPARTATE AMINO TRANSFERASE 26 U/L (0-35); CARBON DIOXIDE 27.6 mmol/L (20.0-32); GLUCOSE 126 mg/dL (70-110)
[2018-07-07] MEDS: SOLU-MEDROL IV SCH ×3 (05:42→22:09)
[2018-07-07] MEDS: SYNTHROID PO SCH ×2 (05:42→05:55)
[2018-07-07] MEDS ORDERED: SUBLIMAZE ONE (06:04)
[2018-07-07] MEDS ORDERED: DIPRIVAN IV ONE (06:04)
--- NOTE | 2018-07-07 06:30 | NUR ---
Report Received report and assumed care of pt. Pt resting in bed with eyes closed. Equal rise and fall of the chest noted. 1:1 at bedside.
[2018-07-07] MEDS ORDERED: WATER ONE (06:34)
--- NOTE | 2018-07-07 06:44 | NUR ---
Report Report given to Barbara Nayak RN
[2018-07-07] MEDS ORDERED: VERSED ONE (06:47)
--- NOTE | 2018-07-07 07:01 | NUR ---
Pt off unit Pt transferred off unit via bed by OR staff. No s/s of distress noted.
--- NOTE | 2018-07-07 08:00 | NUR ---
Pt on unit Pt arrived on unit via bed from PACU. Received report and assumed care of pt. Pt resting with eyes closed. Equal rise and fall of the chest noted. 1:1 at bedside.
--- NOTE | 2018-07-07 08:16 | OPH ---
DATE OF SURGERY: PREOPERATIVE DIAGNOSIS: History of gastrointestinal bleed. POSTOPERATIVE DIAGNOSES: 1. Mild gastritis with some gastric polyps. 2. Sliding type hiatal hernia. 3. Esophagitis. SURGEON: Antonio Solorio DO PRECISION FARMING SPECIALIST: OR staff. ANESTHESIA: Total intravenous anesthesia by Zoë Zapata CRNA. PROCEDURES PERFORMED: Esophagogastroduodenoscopy with biopsy. SPECIMENS: 1. Gastric mucosa. 2. Esophageal mucosa, all to path. ESTIMATED BLOOD LOSS: 7 mL. COUNTS: At the completion of the case, counts were correct per OR staff. DESCRIPTION OF PROCEDURE: The patient is a very pleasant 53-year-old male. He is known from previous evaluation. Prior to procedure, informed consent was obtained from his guardian. At time of procedure, he was taken to the operative suite and placed in supine position. After timeout, esophagogastroduodenoscope was advanced transorally with pneumoinsufflation distally in second portion of duodenum. Once the duodenum was adequately visualized, camera was slowly withdrawn to facilitate visualization of the duodenal bulb and the pylorus. Pylorus showed minimal gastritis. The body of stomach showed some gastritis and some polyps were biopsied. The retroflexed maneuver performed. Cardia shows a significant sliding type hiatal hernia with the fundus involved. Camera was reduced. Hemostasis was noted to be good. Stomach was decompressed. Scope was slowly withdrawn. Distal esophagus shows moderate esophagitis and biopsies were obtained. With hemostasis noted, the camera was advanced. Stomach was decompressed. Again, the camera was slowly withdrawn. Distal esophagus shows good hemostasis. The mid and proximal esophagus was grossly normal. The vocal cords were minimally visualized. The camera was removed. Procedure was discontinued. The patient tolerated this procedure well. There were no acute complications noted. Antonio Solorio DO DR: TRUE/jimenez JOB# [id number] CC: Kieran Pedro MD
[2018-07-07] MEDS: KEPPRA PO SCH ×3 (09:00→22:11)
[2018-07-07] MEDS: PROTONIX PO SCH ×2 (09:16→22:10)
[2018-07-07] MEDS: FOLIC ACID PO SCH (09:16)
[2018-07-07] MEDS: ZESTRIL PO SCH (09:16)
[2018-07-07] MEDS: HALDOL PO SCH ×2 (09:16→22:11)
[2018-07-07] MEDS: CeleXA PO SCH (09:16)
[2018-07-07] MEDS: ATIVAN PO SCH ×2 (09:16→22:10)
--- NOTE | 2018-07-07 11:06 | PRM.PN ---
Subjective Subjective Date: Jul 07, 2018 Time: 11:03 Subjective A little more alert. S/P EGD. No other complaints. No overnight events. VTE VTE Risk Total Score: 1 VTE Risk Score VTE Risk: Score 0-1 = Low Risk (Aggressive mobilization; early ambulation; no VTE prophylaxis required) Score 2: Moderate Risk (Intermittent/Pneumatic Compression Device OR Lovenox/Heparin/Coumadin) Score 3-4: High Risk (Intermittent/Pneumatic Compression Device AND Lovenox/Heparin/Coumadin) Score > or =5: Highest Risk (Intermittent/Pneumatic Compression Device AND Lovenox/Heparin/Coumadin) Review of Systems Constitutional: Weakness; No: Fever, Chills, Sweats, Malaise, Other Respiratory: No: Cough, Dry, Shortness of breath, SOB with excertion, Wheezing , Hemoptysis, Pleuritic Pain, Sputum, Wheezing, Other Cardiovascular: No: Chest Pain, Palpitations, Orthopnea, Paroxysmal Noc. Dyspnea, Edema, Lt Headedness, Other Gastrointestinal: Nausea; No: Vomiting, Abdominal Pain, Diarrhea, Constipation , Melena, Hematochezia, Other Genitourinary: No Dysuria, No Frequency, No Incontinence, No Hematuria, No Retention, No Other Neurological: Weakness; No: Numbness, Incoordination, Change in speech, Confusion, Seizures, Other Allergies: Coded Allergies: No Known Drug Allergies (Verified Allergy, Unknown, 07/05/18) Scheduled Divalproex Sodium (Divalproex Sodium Er), 1 TAB PO HS, (Reported) Escitalopram Oxalate (Escitalopram Oxalate), 1 TAB PO DAILY, (Reported) Folic Acid (Folic Acid), 1 TAB PO DAILY, (Reported) Haloperidol (Haloperidol), 1 TAB PO BID, (Reported) Levetiracetam (Levetiracetam), 1,000 MG PO BID, (Reported) Levetiracetam (Levetiracetam), 1 TAB PO BID, (Reported) Levothyroxine Sodium (Synthroid), 1 TAB PO ACB, (Reported) Lisinopril (Lisinopril), 1 TAB PO DAILY, (Reported) Lorazepam (Ativan), 1 MG PO BID, (Reported) Montelukast Sodium (Singulair), 1 TAB PO HS, (Reported) Olanzapine (Olanzapine), 1 TAB PO HS, (Reported) Quetiapine Fumarate (Seroquel Xr), 1 TAB PO DAILY24, (Reported) Quetiapine Fumarate (Seroquel Xr), 1 TAB PO HS, (Reported) Theophylline Anhydrous (Rl-24), 400 MG PO DAILY24, (Reported) Scheduled PRN Ipratropium/Albuterol Sulfate (Iprat-Albut 0.5-3(2.5) Mg/3 Ml), 3 ML IH Q4 PRN for SHORTNESS OF BREATH, (Reported) Objective Vitals and I/O Vital Sign - Last 24 Hours 07/05/18 07/05/18 07/05/18 07/05/18 12:21 12:29 14:09 14:10 Temp 98.8 98.8 Pulse 105 107 110 Resp 21 28 14 B/P (MAP) 132/83 (99) Pulse Ox 95 97 98 O2 Delivery Nasal Canula Nasal Cannula O2 Flow Rate 2.00 07/05/18 07/05/18 07/05/18 07/05/18 14:10 16:52 16:53 16:54 Temp 97.9 97.9 Pulse 107 111 115 102 Resp 14 19 B/P (MAP) 135/92 (106) Pulse Ox 97 97 98 96 O2 Delivery Nasal Cannula Nasal Canula O2 Flow Rate 2.00 28 07/05/18 07/05/18 07/05/18 07/05/18 20:31 20:37 20:37 20:39 Temp 98.0 98.0 Pulse 104 115 115 115 Resp 20 20 20 20 B/P (MAP) 148/89 (108) Pulse Ox 92 94 94 94 O2 Delivery Nasal Canula Nasal Cannula O2 Flow Rate 3.00 07/05/18 07/06/18 07/06/18 07/06/18 21:39 00:12 02:09 02:20 Temp 98.0 98.0 Pulse 103 105 105 Resp 18 20 20 B/P (MAP) 129/86 (100) Pulse Ox 98 93 93 O2 Delivery Nasal Cannula Nasal Canula O2 Flow Rate 3.00 07/06/18 07/06/18 07/06/18 07/06/18 03:26 05:21 05:28 08:34 Temp 97.6 98.3 97.6 98.3 Pulse 105 105 105 96 Resp 17 17 17 18 B/P (MAP) 142/92 (109) 128/83 (98) Pulse Ox 93 93 O2 Delivery Nasal Canula Nasal Canula O2 Flow Rate 2.00 2.00 07/06/18 07/06/18 07/06/18 07/06/18 08:39 08:39 08:44 10:41 Pulse 98 98 98 Resp 16 16 16 Pulse Ox 95 94 95 O2 Delivery Nasal Cannula Nasal Cannula O2 Flow Rate 2.00 FiO2 28 Intake and Output 07/05/18 07/05/18 07/06/18 14:59 22:59 06:59 Intake Total 1728 ml 462 ml Output Total 175 ml 1075 ml 1475 ml Balance 1553 ml -613 ml -1475 ml General: Alert, Cooperative, No acute distress Lungs: Other (Rhonchi right greater than left. ) Heart: Regular rate, Normal S1, Normal S2, No murmurs Abdomen: Normal bowel sounds, Soft, Other (Distended.) Neuro: Normal speech, Strength at 5/5 X4 ext All Results(Lab/Rad) Laboratory Tests Test 07/05/18 19:05 07/05/18 20:12 07/05/18 23:29 07/06/18 04:52 White Blood Count 13.5 10^3/uL 16.2 10^3/uL Red Blood Count 4.20 10^6/uL 3.95 10^6/uL Hemoglobin 9.6 g/dL 9.1 g/dL Hematocrit 33.2 % 31.3 % Mean Corpuscular Volume 79.0 fL 79.2 fL Mean Corpuscular Hemoglobin 22.9 pg 23.0 pg Mean Corpuscular Hemoglobin Concent 28.9 g/dL 29.1 g/dL Red Cell Distribution Width 20.6 % 20.2 % Platelet Count 316 10^3/uL 279 10^3/uL Mean Platelet Volume 11.3 fL 11.4 fL Blood Gas Sample Site RT BRACIAL ARTERY RT BRACIAL ARTERY Blood Gas pH 7.402 Blood Gas PCO2 44.8 mmHg Blood Gas PO2 53.5 mmHg Blood Gas HCO3 27.3 mmol/L Blood Gas Base Excess 2.1 mmol/L Jason Test N/A N/A Arterial Blood Oxygen Saturation 81.4 % Deoxyhemoglobin 18.5 % Carboxyhemoglobin 0.6 % Methemoglobin 0.1 % Total Hemoglobin 10.3 % Total Oxygen Concentration 11.7 % Lactic Acid (Blood Gas) 3.8 MMOL/L 1.5 MMOL/L Blood Gas Temperature 37 Oxygen Delivery Method (LAB) RA FiO2 21 % Bicarbonate 28.6 mmol/L Sodium Level 137 mmol/L Potassium Level 4.7 mmol/L Chloride Level 102.0 mmol/L Carbon Dioxide Level 29.4 mmol/L Anion Gap 10.3 Blood Urea Nitrogen 24 mg/dL Creatinine 1.44 mg/dL Estimated GFR () 61.9 BUN/Creatinine Ratio 16.0 Glucose Level 196 mg/dL Calcium Level 8.7 mg/dL Magnesium Level 2.2 mg/dL Total Bilirubin 0.2 mg/dL Aspartate Amino Transf (AST/SGOT) 18 U/L Alanine Aminotransferase (ALT/SGPT) 13 U/L Alkaline Phosphatase 62 U/L Total Protein 8.1 g/dL Albumin 2.8 g/dL Globulin 5.3 Current Medications Medications (Trade) Dose Ordered Sig/Cedric Route PRN Reason Start Time Stop Time Status Last Admin Dose Admin Sodium Chloride 1,000 ml @ 0 mls/hr Q0M STAT IV 07/05/18 07:04 07/05/18 07:07 DC 07/05/18 07:30 Albuterol/ Ipratropium (Duoneb 0.5 Mg-3 Mg/3 ml Soln) 3 ml STAT STAT IH 07/05/18 07:06 07/05/18 07:08 DC 07/05/18 07:33 Dexamethasone Sodium Phosphate (Decadron) 4 mg STAT STAT IH 07/05/18 07:06 07/05/18 07:08 DC 07/05/18 07:33 Methylprednisolone Sodium Succinate (Solu-Medrol) 125 mg STAT STAT IV 07/05/18 07:06 07/05/18 07:08 DC 07/05/18 07:31 Lorazepam (Ativan) 2 mg STAT STAT IV 07/05/18 07:12 07/05/18 07:16 DC 07/05/18 07:21 Haloperidol Lactate (Haldol) 5 mg STAT STAT IM 07/05/18 07:12 07/05/18 07:16 DC 07/05/18 08:58 Diphenhydramine HCl (Benadryl) 25 mg STAT STAT IV 07/05/18 07:15 07/05/18 07:16 DC 07/05/18 07:36 Lorazepam (Ativan) 2 mg STK-MED ONCE .ROUTE 07/05/18 07:15 07/05/18 07:17 DC Sodium Chloride 1,000 ml @ ud STK-MED ONCE .ROUTE 07/05/18 07:21 07/05/18 07:23 DC Albuterol/ Ipratropium (Duoneb 0.5 Mg-3 Mg/3 ml Soln) 3 ml STK-MED ONCE IH 07/05/18 07:22 07/05/18 07:23 DC Dexamethasone Sodium Phosphate (Decadron) 4 mg STK-MED ONCE .ROUTE 07/05/18 07:22 07/05/18 07:23 DC Methylprednisolone Sodium Succinate (Solu-Medrol) 125 mg STK-MED ONCE .ROUTE 07/05/18 07:26 07/05/18 07:27 DC Diphenhydramine HCl (Benadryl) 50 mg STK-MED ONCE .ROUTE 07/05/18 07:36 07/05/18 07:37 DC Piperacillin Sod/ Tazobactam Sod 3.375 gm/Sodium Chloride 100 ml @ 100 mls/hr STAT STAT IV 07/05/18 07:54 07/05/18 08:53 DC 07/05/18 08:12 Piperacillin/ Tazobactam/ Dextrose (Zosyn 3.375 Gm/ 50 ml) 3.375 gm Q6 IV 07/05/18 12:00 07/05/18 12:00 DC Methylprednisolone Sodium Succinate (Solu-Medrol) 60 mg Q8HR IV 07/05/18 14:00 08/04/18 13:59 07/06/18 05:10 Albuterol/ Ipratropium (Duoneb 0.5 Mg-3 Mg/3 ml Soln) 3 ml Q4HR IH 07/05/18 12:00 07/05/18 12:00 DC Sodium Chloride 100 ml @ ud STK-MED ONCE IV 07/05/18 08:05 07/05/18 08:06 DC Piperacillin Sod/ Tazobactam Sod (Zosyn 3.375 Gram Vial) 3.375 gm STK-MED ONCE IV 07/05/18 08:05 07/05/18 08:06 DC Albuterol/ Ipratropium (Duoneb 0.5 Mg-3 Mg/3 ml Soln) 3 ml RTQ4 IH 07/05/18 13:00 08/04/18 11:59 07/06/18 08:37 Piperacillin Sod/ Tazobactam Sod 3.375 gm/Sodium Chloride 100 ml @ 100 mls/hr Q6 IV 07/05/18 12:00 08/04/18 11:59 07/06/18 05:07 Haloperidol Lactate (Haldol) 5 mg STK-MED ONCE .ROUTE 07/05/18 08:48 07/05/18 08:50 DC Lorazepam (Ativan) 2 mg Q4 PRN IV AGITATION 07/05/18 10:00 08/04/18 09:59 07/05/18 20:35 Olanzapine (Zyprexa) 7.5 mg Q4 PRN IM AGITATION 07/05/18 10:00 08/04/18 09:59 07/05/18 17:57 Sterile Water 20 ml @ ud STK-MED ONCE .ROUTE 07/05/18 10:31 07/05/18 10:32 DC Pantoprazole Sodium (Protonix) 40 mg DAILY PO 07/06/18 09:00 08/05/18 08:59 07/05/18 16:20 Enoxaparin Sodium (Lovenox) 40 mg Q24HRS SQ 07/05/18 11:00 08/04/18 10:59 Future Hold 07/05/18 14:20 Pantoprazole Sodium (Protonix) 40 mg STK-MED ONCE PO 07/05/18 16:17 07/05/18 16:18 DC Sterile Water 20 ml @ ud STK-MED ONCE .ROUTE 07/05/18 17:51 07/05/18 17:52 DC Pantoprazole Sodium 80 mg/ Sodium Chloride 100 ml @ 10 mls/hr Q10H IV 07/05/18 19:30 08/04/18 19:29 07/06/18 05:08 Pantoprazole Sodium (Protonix Iv) 40 mg STK-MED ONCE IV 07/05/18 19:09 07/05/18 19:10 DC Sodium Chloride 100 ml @ ud STK-MED ONCE IV 07/05/18 19:09 07/05/18 19:10 DC Metoclopramide HCl (Reglan) 10 mg Q4 IV 07/05/18 20:00 07/05/18 21:51 DC 07/05/18 21:27 Sodium Chloride 1,000 ml @ ud STK-MED ONCE .ROUTE 07/05/18 21:29 07/05/18 21:31 DC Metoclopramide HCl (Reglan) 10 mg Q6HR PRN IV NAUSEA / VOMITING 07/06/18 03:00 08/04/18 19:59 Potassium Chloride/Dextrose/ Sod Cl 1,000 ml @ 150 mls/hr Q6H40M IV 07/05/18 22:30 07/06/18 08:16 DC 07/06/18 02:55 Potassium Chloride/Sodium Chloride 1,000 ml @ ud STK-MED ONCE .ROUTE 07/06/18 00:03 07/06/18 00:05 DC Pantoprazole Sodium (Protonix Iv) 40 mg STK-MED ONCE IV 07/06/18 04:45 07/06/18 04:47 DC Sodium Chloride 100 ml @ ud STK-MED ONCE IV 07/06/18 04:45 07/06/18 04:47 DC Course Sepsis Screening Results: Posi: POSITIVE Sepsis Qualifier/Stage: SEPSIS RISK Duration or Total Time Spent w: 2 HRS Vitals & review Data Vital Sign - Last 24 Hours 07/05/18 07/05/18 07/05/18 07/05/18 07:03 07:13 07:29 07:34 Temp 98.5 98.5 98.5 98.5 Pulse 109 109 113 109 Resp 14 14 16 16 B/P (MAP) 136/79 (98) Pulse Ox 81 81 91 95 O2 Delivery Room Air Room Air Laboratory Tests Test 07/05/18 07:17 07/05/18 07:33 White Blood Count 12.2 10^3/uL Red Blood Count 4.25 10^6/uL Hemoglobin 10.0 g/dL Hematocrit 33.6 % Mean Corpuscular Volume 79.1 fL Mean Corpuscular Hemoglobin 23.5 pg Mean Corpuscular Hemoglobin Concent 29.8 g/dL Red Cell Distribution Width 20.7 % Platelet Count 313 10^3/uL Mean Platelet Volume 11.6 fL Neutrophils (%) (Auto) 69.8 % Lymphocytes (%) (Auto) 17.9 % Monocytes (%) (Auto) 8.6 % Neutrophils # (Auto) 8.5 10^3/uL Lymphocytes # (Auto) 2.2 10^3/uL Monocytes # (Auto) 1.0 10^3/uL Absolute Immature Granulocyte (auto 0.03 10^3 u/L Eosinophils % 3.2 % Basophils % 0.3 % Basophils # 0.0 10^3/uL Eosinophil Count 0.4 10^3/uL Prothrombin Time 11.2 SEC Prothrombin Time INR (Non-Therap) 1.1 Activated Partial Thromboplast Time 23.3 SEC Sodium Level 139 mmol/L Potassium Level 4.1 mmol/L Chloride Level 101.0 mmol/L Carbon Dioxide Level 28.1 mmol/L Anion Gap 14.0 Blood Urea Nitrogen 14 mg/dL Creatinine 1.52 mg/dL Estimated GFR () 58.1 BUN/Creatinine Ratio 9.0 Glucose Level 101 mg/dL Calcium Level 9.0 mg/dL Total Bilirubin 0.2 mg/dL Aspartate Amino Transf (AST/SGOT) 11 U/L Alanine Aminotransferase (ALT/SGPT) 11 U/L Alkaline Phosphatase 67 U/L Ammonia 17 umol/L Total Creatine Kinase 230 U/L Creatine Kinase MB 1.1 ng/mL Troponin I < 0.02 ng/mL Total Protein 8.6 g/dL Albumin 3.0 g/dL Globulin 5.6 Amylase Level 95 U/L Lipase 138 U/L Valproic Acid (Depakene) Level 25 ug/mL Percent Immature Gran (Cell Imm) 0.20 % Helicobacter pylori Screen NEGATIVE Differential Total Cells Counted 100 #CELLS Segmented Neutrophils 75 % Lymphocytes 15 % Monocytes 8 % Absolute Eosinophils (Manual) 1 % Basophils 1 % Platelet Estimate ADEQUATE Platelet Morphology NORMAL Poikilocytosis 1+ Anisocytosis 2+ Sepsis Infection Criteria Pres: Documented Infection LEVEL 1 SEPSIS INFECTION CRITE: ABX Therapy LEVEL 2-SIRS (LIST ALL THAT AP: [id number] Cardiovascular Evidence: Not Assessed or None Hematologic Evidence: None/Not assessed Hepatic Evidence: None/Not assessed Metabolic Evidence: None/Not assessed Neurological Evidence: Altered Mental Status Respiratory Evidence: Need for O2 to keep>90%, O2 SAT<90room air Renal Evidence: None/Not assessed O2 Sat by Pulse Oximetry: 94 Respiratory End-tidal CO2: 94 Oxygen Flow Rate: 2.00 Assessment/Plan Assessment/Plan Assessment/Plan 1. Hematemesis - Pt reportedly had bright red blood in emesis at [facility]. Unfortunately won't keep NGT in. EGD showed esophagitis and gastritis. - Change Protonix to PO. - Start clear liquid diet. - Follow H&H.. 2. N/V - Likely secondary to bleeding vs.partial SBO vs ileus. Much less distended today. - Continue anti-emetics as needed. 3. Leukocytosis - On emperic abx. 4. Anemia of chronic disease - Stable. - Continue to follow closely. 5. Paranoid schizophrenia - Pt is very agitated. Making it difficult to manage his care. JENNIFER BROWN MD Jul 07, 2018 11:06
[2018-07-07] MEDS: SEROQUEL PO SCH ×2 (11:30→22:11)
[2018-07-07] MEDS: DUONEB 0.5 MG-3 MG/3 ML SOLN IH PRN ×2 (13:29→19:08)
[2018-07-07] MEDS ORDERED: NS 1000ML 1,000 ML ONE (14:45)
[2018-07-07] MEDS: DEPAKOTE ER PO SCH (22:10)
[2018-07-07] MEDS: ZYPREXA ZYDIS PO SCH (22:10)
[2018-07-07] MEDS: SINGULAIR PO SCH (22:10)
[2018-07-08 04:59] VITALS: BP 137/89
[2018-07-08 05:09] LABS: HEMOGLOBIN 9.2 g/dL (13.9-16.3); MEAN CELL HGB 23.1 pg (26-34); MEAN CELL HGB CONCENTRATION 28.7 g/dL (33-37); MEAN CORP VOLUME 80.7 fL (78-100); MEAN PLATELET VOLUME 11.8 fL (7.8-11.0); RED CELL DISTRIBUTION WIDTH 20.2 % (11.5-14.5)
[2018-07-08] MEDS: SOLU-MEDROL IV SCH (05:12)
[2018-07-08] MEDS: ZOSYN 3.375 GRAM VIAL 3.375 GM in NS 100ML 100 ML IV SCH ×2 (05:12→06:00)
[2018-07-08] MEDS: SYNTHROID PO SCH (06:06)
[2018-07-08] MEDS: REGLAN IV PRN (06:33)
[2018-07-08 07:09] VITALS: BP 150/93
--- NOTE | 2018-07-08 07:45 | NUR ---
DR BROWN AT BEDSIDE ASSESSING PATIENT. WILL ADVANCE TO REGULAR DIET IF PATIENT IS STILL PRESENT AT LUNCH PER DR BROWN. PLANS TO DISCHARGE PATIENT BACK TO [facility] TODAY PER DR BROWN
[2018-07-08 08:21] LABS: CALCIUM 9.2 mg/dL (8.4-10.5)
--- NOTE | 2018-07-08 08:35 | NUR ---
PATIENT REQUESTING BREATHING TREATMENT. NOTIFIED RT
[2018-07-08] MEDS: DUONEB 0.5 MG-3 MG/3 ML SOLN IH PRN (08:44)
[2018-07-08] MEDS: HALDOL PO SCH (08:53)
[2018-07-08] MEDS: KEPPRA PO SCH (08:53)
[2018-07-08] MEDS: PROTONIX PO SCH (08:53)
[2018-07-08] MEDS: ZESTRIL PO SCH (08:53)
[2018-07-08] MEDS: FOLIC ACID PO SCH (08:53)
[2018-07-08] MEDS: CeleXA PO SCH (08:54)
[2018-07-08] MEDS: ATIVAN PO SCH (08:54)
--- NOTE | 2018-07-08 09:00 | NUR ---
O2SAT 97% ON 1LPM VIA NC. REMOVED OXYGEN
--- NOTE | 2018-07-08 09:01 | NUR ---
PATIENT SITTING UP IN BED EATING AND DRINKING. ACTING APPROPRIATELY. NO S/S OF DISTRESS NOTED. NO EPISODES OF AGITATION OBSERVED. PATIENT CALM AND RELAXED
--- NOTE | 2018-07-08 09:30 | NUR ---
O2SAT 95% ON RA. NO S/S OF DISTRESS NOTED AT THIS TIME. AMBULATED PATIENT IN HALLWAY USING WALKER AND GAIT BELT. WHEN ARRIVING TO THE NURSES STATION, PATIENT SCREAMED OUT "CANDIS, CANDIS, CANDIS!" EXPLAINED THAT CANDIS WAS WITH OTHER PATIENTS AND REDIRECTED PATIENT BACK TO ROOM WITH NO PROBLEMS.
[2018-07-08] MEDS ORDERED: PANT40TA3 PO (09:45)
--- NOTE | 2018-07-08 09:51 | NUR ---
PATIENT VOMITING COFFEE GROUND LIKE EMESIS. NOTIFIED DR BROWN THAT PATIENT HAS HAD 3 LIQUID BOWEL MOVEMENTS, HAS VOMITED COFFEE GROUND LIKE EMESIS AND THAT ABDOMEN WAS FIRM AND DISTENDED. NEW ORDERS FOR A KUB
--- NOTE | 2018-07-08 10:34 | NUR ---
RADIOLOGY AT BEDSIDE
[2018-07-08 11:19] VITALS: BP 150/93
--- NOTE | 2018-07-08 11:20 | NUR ---
DISCHARGE PATIENT DISCHARGED. DISCHARGE INSTRUCTIONS GIVEN TO [facility] STAFF AT [facility]. PATIENT TRANSPORTED OFF OF UNIT BY [facility] STAFF IN WHEELCHAIR. NO S/S OF DISTRESS NOTED AT TIME OF DISCHARGE
--- NOTE | 2018-07-08 11:44 | DIREP ---
PROCEDURE:XRAY ABDOMEN SINGLE VW COMPARISON:[facility], CT, CT ABD/PELVIS W/O, 07/06/2018, 09:28 AM. INDICATIONS:abdominal pain with dark emesis FINDINGS: BOWEL GAS PATTERN:Overall there is a paucity of bowel gas. Otherwise bowel gas pattern is nonspecific. CALCIFICATIONS:None significant. LUNG BASES:Clear. BONES:Sclerotic and lucent changes in the femoral heads bilaterally. OTHER:No additional findings. CONCLUSION:Nonspecific bowel gas pattern. Dictated by: Jordan Kyle MD on 07/08/2018 at 11:38 AM
--- NOTE | 2018-07-11 18:18 | DSH ---
DATE OF DISCHARGE: ADMITTING DIAGNOSES: 1. Shortness of breath. 2. Acute on chronic respiratory failure. 3. Hemoptysis. 4. Nausea and vomiting. 5. Leukocytosis. 6. Anemia of chronic disease. 7. Paranoid schizophrenia. 8. Hypertension. 9. Tachycardia. DISCHARGE DIAGNOSES: 1. Hematemesis. 2. Esophagitis. 3. Gastritis. 4. Acute on chronic respiratory failure secondary to chronic obstructive pulmonary disease -- present on admission. 5. Nausea, vomiting. 6. Anemia of chronic disease. 7. Paranoid schizophrenia. 8. Hypertension. DISCHARGE MEDICATIONS: 1. Nexium 40 mg p.o. b.i.d. 2. Resume previous home medications. DISCHARGE DISPOSITION: alf facility. FOLLOWUP: Follow up with PCP within 1-2 weeks. HOSPITAL COURSE: This is a 53-year-old male with a past medical history of bipolar and schizophrenia that presented to the Emergency Department after being [facility] from [facility]. He was transferred for hemoptysis, but it was later found to be hematemesis. The patient was having minor difficulties with his oxygen secondary to his acute on chronic respiratory failure from blood sugar problems. He may have had some aspiration pneumonitis as well. He started having dark bloody emesis on day 1 of admission and General Surgery was consulted for evaluation. The patient was taken for EGD the following day after having aggressive IV fluid resuscitation. EGD showed esophagitis and gastritis, which would be amenable to conservative therapy. The patient had been on IV Protonix and this was changed over to oral Protonix twice daily. The remainder of his laboratory evaluation was stable. He was able to be discharged back to a prison facility on the above day of discharge in stable condition. Kieran Pedro MD DR: KRISTIN/jimenez JOB# [id number]
== END 2018-07-08 14:27 | DRG 137 ==
LOC: EDBD 06:50 → ER 06:50 → MS 07:59 → EDPENDDISTM 07-08 11:20
PROVIDERS: ADMIT Internal Medicine; ATTEND Internal Medicine
PROC: 0DB68ZX Excision of Stomach, Via Natural or Artificial Opening Endoscopic, Diagnostic (ICD-10-PCS; 2018-07-07)
PROC: 0DB38ZX Excision of Lower Esophagus, Via Natural or Artificial Opening Endoscopic, Diagnostic (ICD-10-PCS; principal; 2018-07-07 11:00)
DX: J69.0 Pneumonitis due to inhalation of food and vomit (principal); J96.20 Acute and chronic respiratory failure, unspecified whether with hypoxia or hypercapnia; N17.9 Acute kidney failure, unspecified; K29.71 Gastritis, unspecified, with bleeding; E44.0 Moderate protein-calorie malnutrition; Z68.28 Body mass index [BMI] 28.0-28.9, adult; D62 Acute posthemorrhagic anemia; F20.0 Paranoid schizophrenia; D63.8 Anemia in other chronic diseases classified elsewhere; I10 Essential (primary) hypertension; J44.0 Chronic obstructive pulmonary disease with (acute) lower respiratory infection; J20.9 Acute bronchitis, unspecified; K31.7 Polyp of stomach and duodenum; K44.9 Diaphragmatic hernia without obstruction or gangrene; K21.0 Gastro-esophageal reflux disease with esophagitis; E03.9 Hypothyroidism, unspecified; F31.9 Bipolar disorder, unspecified; F41.1 Generalized anxiety disorder
CPT/HCPCS: 36415; 36600; 43235; 71045; 74018; 74019; 74176; 80053; 80164; 81002; 82140; 82150; 82550; 82553; 82803; 83605; 83690; 83735; 84484; 85025; 85027; 85610; 85730; 86677; 86900; 87070; 87077; 87205; 88305; 93005; 94640; 99285; C9113; G0378; J1100; J1200; J1650; J2060; J2250; J2543; J2550; J2765; J2930; J3010; J3490; J7030; J7050; J7070; J7620; A4216; J1630

== ENCOUNTER → 2018-08-17 | Outpatient (CLI) | payer MEDICARE, MEDICAID ==
[~2018-08-17] MED LIST: DIVA500T17 PO; ESCI20TA PO; FOLI1TAB21 PO; HALO5TAB PO; IPRA3AMP25 IH; LEVE10007 PO; LEVE500T8 PO; LEVO100T PO; LISI-410 PO; LORA-448 PO; MONT10TA6 PO; OLAN10TA9 PO; PANT40TA3 PO; QUET150T2 PO; QUET300T7 PO; THEO400C PO
--- NOTE | 2018-08-17 17:18 | DIREP ---
PROCEDURE:CT CHEST WITH CONTRAST COMPARISON:[facility], CR, XRAY CHEST SINGLE VW, 07/06/2018, 11:16 AM. INDICATIONS:NODULE IN LUNG TECHNIQUE: Axial images were obtained through the chest without the administration of IV contrast. Motion artifact. FINDINGS: LUNGS/PLEURA: Dependent atelectasis at the posterior right base. The lungs are clear of focal consolidation. No evidence of pleural effusion. No apparent nodule. VASCULATURE: Unremarkable pulmonary vasculature. CARDIAC: No cardiac abnormality or cardiomegaly. THORACIC AORTA: Negative. MEDIASTINUM/HEATHER:Hiatal hernia. The wall of the distal esophagus is thickened. Esophagus is distended with fluid in the lumen. CHEST WALL: Negative. BONES: Negative. THYROID: Negative. OTHER: No additional findings. CONCLUSION: 1. No apparent pulmonary nodule. 2. Hiatal hernia. The wall of the distal esophagus is thickened. The esophagus is distended with fluid in the lumen. Dictated by: Denzel Hines M.D. On 08/17/2018 at 05:02 PM
== END | disposition home or self-care (01) ==
LOC: CT 15:40
DX: J98.11 Atelectasis (principal); K44.9 Diaphragmatic hernia without obstruction or gangrene
CPT/HCPCS: 71260; Q9965